=== PATIENT | male | born 1980 | race Caucasian/White ===

== ENCOUNTER 2023-01-17 19:18 | Emergency (ER) | payer OTHER, SELFPAY ==
[2023-01-17 19:30] VITALS: BP 135/99; PULSE 91; RESP 18; TEMP 36.6; O2SAT 99; BMI 34.9
--- NOTE | 2023-01-17 19:40 | US_ITS ---
The [address] [address] Patient Name: JOSEFINA SALDIVAR MRN: [id number] date: 1980 Sex: M Assigned Patient Location: ER Current Patient Location: ED.MAIN Accession/Order Number: [id number] Exam Date: 01/17/2023 20:40 Report Date: 01/17/2023 21:37 At the request of: KENJI OCHOA Procedure: US venous doppler LE LT EXAM: US venous doppler LE LT HISTORY: DVT evaluation COMPARISON: None. TECHNIQUE: Multiple sonographic images of the deep veins of the left lower extremity were obtained, supplemented with Doppler. FINDINGS: The deep veins of the left lower extremity are well visualized from the groin to the mid calf. No filling defect is identified to indicate a thrombus. There is normal compression augmentation to flow throughout. US/US venous doppler LE LT IMPRESSION: Unremarkable study. There is no direct or indirect evidence of deep vein thrombosis in the left lower extremity at this time. Electronically authenticated by: TARA COLEMAN Date: 01/17/2023 21:37
--- NOTE | 2023-01-17 19:48 | ED.EXTPRO1 ---
HPI - Extremity Problem General Chief complaint: Extremity Problem, Nontraumatic Stated complaint: LOWER EXTREMITY PAIN Time Seen by Provider: 01/17/23 19:30 Source: patient and family Mode of arrival: walk-in Limitations: no limitations History of Present Illness HPI Narrative: This 42-year-old male, smoker, presents for evaluation of left leg pain. The patient states he was chasing a cow that had gotten out of a pen when he felt a pulling sensation in his left buttock that radiated down his left leg and into his calf. He did not fall. He also states he has had some swollen areas on the lateral aspect of the left lower leg. It is not swollen now. He is concerned that he may have a blood clot. He denies any chest pain or shortness of breath. He is moderately overweight in the smoker. He is not on any testosterone or hormones. He states that on the way to the emergency Department the pain started resolving. He declines a need for any pain medication at this time. He does state that he has had sciatica in the past and has had 2 back surgeries. Related Data Home Medications Medication Instructions Recorded Confirmed No Known Home Medications 01/17/23 01/17/23 Allergies Allergy/AdvReac Type Severity Reaction Status Date / Time No Known Drug Allergies Allergy Verified 01/17/23 19:34 Review of Systems ROS Status of ROS 10 or more systems reviewed and unremarkable except as noted in history and below Exam Narrative Exam Narrative: Nurses note and vital signs reviewed and patient is not hypoxic. The pressure was noted to be mildly elevated at 135/99 General: The patient appears well and in no apparent distress. Patient is resting comfortably on cart. Skin: Warm, dry, no pallor noted. There is no rash noted. Head: Normocephalic, atraumatic Eye: Normal conjunctiva, no drainage, EOMI. PERRL Ears, Nose, Mouth, and Throat: oral mucosa is moist. Cardiovascular: Regular Rate and Rhythm S1 and S2, no murmurs rubs or gallops, pulses are brisk and equal bilaterally Respiratory: Patient is in no distress, no accessory muscle use, lungs are clear to auscultation, no wheezing, rales or rhonchi Back: non-tender, no CVA tenderness bilaterally to percussion. Healed midline lumbar incision noted GI: Normal bowel sounds, no tenderness to palpation, no masses appreciated. No rebound, guarding, or rigidity noted. Musculoskeletal: The patient has no evidence of calf tenderness, no pitting edema, symmetrical pulses noted bilaterally, There is no calf swelling, tenderness, redness, induration, palpable cords or other notable abnormality. Negative Homans sign. Dorsalis pedis and posterior tibialis pulses are brisk and equal bilaterally, capillary refill is less than 2 seconds in the foot Neurological: A&O x4, normal speech Psychiatric: Cooperative Constitutional Vital Signs, click to edit/add: Last Vital Signs Temp 97.9 F 01/17/23 19:30 Pulse 91 H 01/17/23 19:30 Resp 18 01/17/23 19:30 BP 135/99 H 01/17/23 19:30 Pulse Ox 99 01/17/23 19:30 O2 Del Method Room Air 01/17/23 19:30 Course Vital Signs Vital signs: Vital Signs Temperature 97.9 F 01/17/23 19:30 Pulse Rate 91 H 01/17/23 19:30 Respiratory Rate 18 01/17/23 19:30 Blood Pressure 135/99 H 01/17/23 19:30 Pulse Oximetry 99 01/17/23 19:30 Oxygen Delivery Method Room Air 01/17/23 19:30 Temperature 97.9 F 01/17/23 19:30 Pulse Rate 91 H 01/17/23 19:30 Respiratory Rate 18 01/17/23 19:30 Blood Pressure 135/99 H 01/17/23 19:30 Pulse Oximetry 99 01/17/23 19:30 Oxygen Delivery Method Room Air 01/17/23 19:30 MDM - Extremity (Nontraumatic) MDM Narrative Medical decision making narrative: This 42-year-old male, smoker, presents for evaluation of left leg pain. He was chasing a cow that had gotten out of the gait and he had pain in his left low back that radiated down the back of his left leg. He did not fall. He states he felt a cramp in his leg and had some swelling in the lateral aspect of his left calf. The swelling has since resolved. His pain has since resolved. Clinically there was no sign of deep vein thrombosis but due to his history of smoking use and moderate obesity an ultrasound was ordered. The ultrasound reading was delayed by many hours And ultimately I explained to him that he could be discharged home and I would call him with the results of the ultrasound. Immediately prior to his discharge the ultrasound report was available and was negative. This was discussed with him. I suspected that his symptoms are related to a muscle cramp/spasm. He declined the need for any medications in the emergency department. He was infiltrated the time of discharge without any leg pain, chest pain, shortness of breath or any other concerns. An EKG was done upon his arrival that was a sinus rhythm at 90 beats for minute with a normal axis and incomplete right bundle-branch block. ECG Data Attestation ECG: I personally reviewed and interpreted this ECG as follows: (Sinus rhythm at 90 beats for minute, normal axis, incomplete right bundle branch block, no acute ST segment elevation or T-wave inversion) Discharge Plan Discharge Chief Complaint: Extremity Problem, Nontraumatic Clinical Impression: Acute leg pain, Muscle spasm of left calf Patient Disposition: Home, Self-Care Time of Disposition Decision: 22:41 Condition: Good Prescriptions / Home Meds: No Action No Known Home Medications Instructions: Leg Cramps (ED), Muscle Spasm (ED), Leg Pain (ED) Stand Alone Forms: Portal Instructions Referrals: Physician,Non-Staff, MD [Primary Care Provider] - 1 week Discharge Date/Time: 01/17/23 23:01
--- NOTE | 2023-01-17 23:14 | ECG_ITS ---
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
== END 2023-01-17 23:01 | disposition home or self-care (01) ==
PROVIDERS: Emergency Provider Emergency Medicine
DX: M62.831 Muscle spasm of calf (principal); M79.605 Pain in left leg; F17.210 Nicotine dependence, cigarettes, uncomplicated
CPT/HCPCS: 93005; 93971; 99284